=== PATIENT | female | born 1950 | race Asian ===

== ENCOUNTER 2017-01-19 20:22 | Emergency (ER) | payer OTHER ==
[~2017-01-19] VITALS: Ht 147.3 cm; Wt 130.0 kg
[~2017-01-19 20:22] MED LIST: ATEN-51 PO; CLOP75TA4 PO; FLUT16SP17 NASAL; LISI40TA9 PO; POTA8CAP PO
[2017-01-19 20:30] VITALS: Ht 147.3 cm; Wt 130.0 kg
[2017-01-19] MEDS ORDERED: SOD CHLORIDE 0.9% 500 ML IV STA (20:33)
[2017-01-19 20:52] LABS: ADD SCAN DIFF NO
[2017-01-19 20:54] LABS: BASOPHILS % 0.5 % (0.0-2.0); EOSINOPHILS # 0.1 10^3/ul (0.0-0.5); HEMOGLOBIN 14.7 g/dl (12.0-16.0); LYMPHOCYTES # 2.5 10^3/ul (0.8-2.9); LYMPHOCYTES % 32.7 % (15.0-51.0); MEAN CORPUSCULAR HGB CONC 33.4 g/dl (32.0-37.0); MEAN CORPUSCULAR VOLUME 86.8 fl (82.0-101.0); MEAN PLATELET VOLUME 9.8 fl (7.4-10.4); MONOCYTE # 0.3 10^3/ul (0.3-0.9); MONOCYTES % 3.6 % (0.0-11.0); NEUTROPHIL # 4.7 10^3/ul (1.6-7.5); NEUTROPHILS % 61.4 % (39.0-77.0); PLATELET COUNT 290 10^3/UL (140-415); RED BLOOD COUNT 5.07 10^6/ul (4.20-5.40); RED CELL DISTRIBUTION WIDTH 12.4 % (11.5-14.5); WHITE BLOOD COUNT 7.7 10^3/ul (4.8-10.8)
[2017-01-19] MEDS ORDERED: ATOR80TA75 PO (20:56)
[2017-01-19] MEDS ORDERED: GABA300C16 PO (20:56)
[2017-01-19] MEDS ORDERED: LEVE-5 PO (20:56)
[2017-01-19] MEDS ORDERED: BENA40TA54 PO (20:58)
[2017-01-19 21:10] LABS: CHLORIDE 101 mmol/L (97-110); SODIUM 141 mmol/L (135-144)
--- NOTE | 2017-01-19 21:10 | RADRPT ---
PROCEDURE: CT Brain without contrast. CLINICAL INDICATION: Patient experiencing Syncope. TECHNIQUE: A CT of the brain was performed utilizing axial imaging from the skull base through the vertex without IV contrast. Multiplanar reformatted images were made. Images were reviewed on a [employer] workstation. The CTDIvol is 40 mGy and the DLP is 769 mGycm. COMPARISON: Head CT August 09, 2016 FINDINGS: There is moderate diffuse cerebral volume loss with sulcal and ventricular dilatation. No discrete extra-axial fluid collection or masses seen. There is 3 mm left to right midline shift. Noted is a n old infarct in the distribution of the right middle cerebral artery involving the external capsule as well as the white matter in the frontal and parietal lobes. This was present on the prior exam. There is periventricular white matter disease in both cerebral hemispheres compatible with chronic small vessel ischemia. There is no associated mass effect. No intracranial hemorrhage is visualiz ed. There is normal aeration in the visualized paranasal sinuses. IMPRESSION: Atrophy. 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 White matter disease compatible with chronic small v essel ischemia. No intracranial hemorrhage or mass. No change. .Arpan Rosas MD, MD Date Time Electronically viewed and signed by .Arpan Rosas MD, on 01/19/2017 21:10 .A/
[2017-01-19 21:13] LABS: ANION GAP 18 (8-16); BLOOD UREA NITROGEN 14 mg/dl (7-20); CARBON DIOXIDE 25 mmol/L (21-31); CREATININE 0.94 mg/dl (0.44-1.00); GLUCOSE 188 mg/dl (70-220)
[2017-01-19 21:16] LABS: POTASSIUM 2.7 mmol/L (3.5-5.1)
[2017-01-19 21:26] LABS: TROPONIN-I < 0.012 ng/ml (0.00-0.12)
[2017-01-19] MEDS ORDERED: POTASSIUM CHLORIDE (SR) 20 MEQ TAB PO STA (21:28)
--- NOTE | 2017-01-19 21:38 | ERD ---
ER Documentation Chief Complaint Date/Time DATE: 01/19/17 TIME: 21:37 Chief Complaint DIZZINESS, NEAR SYNCOPE EPISODE HPI Patient is a 66-year-old female with hypertension who presents with dizziness. The patient had an episode of syncope prior to arrival. The patient was brought in by ambulance. Patient has no fevers and no pain. She was at [facility] when the incident happened. I told her that since she has [facility] insurance we will likely need to transfer her to [place] and she says "I do not want to be admitted to send me home please". Upon review of old medical records this the patient's 10th visit to the ER since 2011. ROS All systems reviewed and are negative except as per history of present illness. Medications Home Meds Reported Medications Benazepril Hcl* (Lotensin*) 40 Mg Tablet, 40 MG PO DAILY, #30 TAB 01/19/17 Gabapentin* (Gabapentin*) 300 Mg Capsule, 300 MG PO TID, #90 CAP 01/19/17 Atorvastatin* (Atorvastatin*) 80 Mg Tablet, 80 MG PO QHS, #30 TAB 01/19/17 Levetiracetam* (Keppra*) 500 Mg Tablet, 500 MG PO TID, TAB 01/19/17 Fluticasone Propionate* (Fluticasone Propionate* Nasal) 50 Mcg/[place] - 16 Gm [place].susp, 1 SPRAY NASAL DAILY, #1 BOTTLE TO EACH NOSTRIL 08/09/16 Lisinopril* (Lisinopril*) 40 Mg Tablet, 40 MG PO DAILY, #30 TAB 08/09/16 Clopidogrel Bisulfate* (Clopidogrel Bisulfate*) 75 Mg Tablet, 75 MG PO DAILY, # 30 TAB 08/09/16 Atenolol* (Atenolol*) 25 Mg Tablet, 25 MG PO DAILY, #30 TAB 08/09/16 Discontinued Reported Medications Potassium Chloride* (Potassium Chloride*) 8 Meq Capsule.er, 8 MEQ PO TID, CAP 08/09/16 Allergies Allergies: Coded Allergies: Phenytoin Sodium Extended (Verified Allergy, Unknown, RASH, 01/19/17) codeine (Verified Allergy, Unknown, 01/19/17) phenytoin sodium (Verified Allergy, Unknown, RASH, 01/19/17) PMhx/Soc History of Surgery: No Anesthesia Reaction: No Hx Neurological Disorder: Yes (STROKE IN DECEMBER 2012) Hx Respiratory Disorders: No Hx Cardiac Disorders: Yes (HTN, CVA ) Hx Psychiatric Problems: No Hx Alcohol Use: No Hx Substance Use: No Hx Tobacco Use: No Smoking Status: Never smoker FmHx Family History: No diabetes Physical Exam Vitals Vital Signs Date Time Temp Pulse Resp B/P Pulse Ox O2 Delivery O2 Flow Rate FiO2 01/19/17 21:48 98.4 88 20 153/74 100 Room Air 01/19/17 20:30 98.4 67 20 134/62 100 Physical Exam Const: No acute distress Head: Atraumatic Eyes: Normal Conjunctiva ENT: Normal External Ears, Nose and Mouth. Neck: Full range of motion..~ No meningismus. Resp: Clear to auscultation bilaterally Cardio: Regular rate and rhythm, no murmurs Abd: Soft, non tender, non distended. Normal bowel sounds Skin: No petechiae or rashes Back: No midline or flank tenderness Ext: No cyanosis, or edema Neur: Awake and alert Psych: Normal Mood and Affect Result Diagram: 01/19/17204301/19/172043 Results 24 hrs Laboratory Tests Test 01/19/17 20:40 01/19/17 20:44 Bedside Glucose 153mg/dL White Blood Count 7.710^3/ul Red Blood Count 5.0710^6/ul Hemoglobin 14.7g/dl Hematocrit 44.0% Mean Corpuscular Volume 86.8fl Mean Corpuscular Hemoglobin 29.0pg Mean Corpuscular Hemoglobin Concent 33.4g/dl Red Cell Distribution Width 12.4% Platelet Count 18800^3/UL Mean Platelet Volume 9.8fl Neutrophils % 61.4% Lymphocytes % 32.7% Monocytes % 3.6% Eosinophils % 1.0% Basophils % 0.5% Nucleated Red Blood Cells % 0.0/100WBC Neutrophils # 4.710^3/ul Lymphocytes # 2.510^3/ul Monocytes # 0.310^3/ul Eosinophils # 0.110^3/ul Basophils # 0.010^3/ul Nucleated Red Blood Cells # 0.010^3/ul Sodium Level 141mmol/L Potassium Level 2.7mmol/L Chloride Level 101mmol/L Carbon Dioxide Level 25mmol/L Anion Gap 18 Blood Urea Nitrogen 14mg/dl Creatinine 0.94mg/dl Glucose Level 188mg/dl Calcium Level 9.0mg/dl Troponin I < 0.012ng/ml Current Medications Medications (Trade) Dose Ordered Sig/Sharon Route PRN Reason Start Time Stop Time Status Last Admin Dose Admin Sodium Chloride (NS) 500 ml @ 500 mls/hr Q1H STAT IV 01/19/17 20:33 01/19/17 21:32 DC 01/19/17 20:41 Potassium Chloride (Klor-Con 20) 40 meq ONCE STAT PO 01/19/17 21:28 01/19/17 21:29 DC 01/19/17 21:41 Procedures/MDM EKG read by me: Rate/Rhythm: First-degree AV block at a rate of 70 Intervals: Delayed DE interval Impression: First-degree AV block without evidence of ischemia PROCEDURE: CT Brain without contrast. CLINICAL INDICATION: Patient experiencing Syncope. TECHNIQUE: A CT of the brain was performed utilizing axial imaging from the skull base through the vertex without IV contrast. Multiplanar reformatted images were made. Images were reviewed on a PACS workstation. The CTDIvol is 40 mGy and the DLP is 769 mGycm. COMPARISON: Head CT August 09, 2016 FINDINGS: There is moderate diffuse cerebral volume loss with sulcal and ventricular dilatation. No discrete extra-axial fluid collection or masses seen. There is 3 mm left to right midline shift. Noted is an old infarct in the distribution of the right middle cerebral artery involving the external capsule as well as the white matter in the frontal and parietal lobes. This was present on the prior exam. There is periventricular white matter disease in both cerebral hemispheres compatible with chronic small vessel ischemia. There is no associated mass effect. No intracranial hemorrhage is visualized. There is normal aeration in the visualized paranasal sinuses. IMPRESSION: Atrophy. 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 White matter disease compatible with chronic small vessel ischemia. No intracranial hemorrhage or mass. No change. .Arpan Rosas MD, MD Date Time Electronically viewed and signed by .Arpan Rosas MD, on 01/19/2017 21: 10 Patient is a 66-year-old female with hypertension who presents with dizziness and an episode of syncope. Given her age and risk factors I did want to admit her to the hospital but she is refusing admission at this time. Her laboratory studies show hypokalemia and she was given potassium by mouth. The patient will leave AGAINST MEDICAL ADVICE as I did want to admit her. Patient went to follow-up closely with her primary doctor within 24-48 hours. She can return for any worsening symptoms. There is no sign of acute coronary syndrome, stroke , or anemia. Departure Diagnosis: Primary Impression: Hypokalemia Additional Impressions: Dizziness Syncope Syncope type: unspecified Qualified Code: R55 - Syncope, unspecified syncope type Condition: Fair Patient Instructions: Hyperkalemia, Dizziness, Unk Cause, Syncope, Unk Cause Referrals: Your doctor Additional Instructions: Call your primary care doctor TOMORROW for an appointment during the next 1-2 days.See the doctor sooner or return here if your condition worsens before your appointment time. DANITA LIM MD Jan 19, 2017 21:37
[2017-01-19 21:48] VITALS: BP 153/74; PULSE 88; RESP 20; TEMP 98.4
== END 2017-01-19 21:50 | disposition left against medical advice (07) ==
LOC: E/R 20:22
DX: E87.6 Hypokalemia (principal); R55 Syncope and collapse; I10 Essential (primary) hypertension
CPT/HCPCS: 70450; 80048; 82962; 84484; 85025; 93005; J7040; 36415

== ENCOUNTER 2018-04-13 18:24 | Emergency (ER) | END 2018-04-14 00:15 | disposition home or self-care (01) ==